=== PATIENT | female | born 1985 | race Two or more races ===

== ENCOUNTER 2017-09-13 09:12 | Emergency (ER) | payer MEDICAID, OTHER ==
[2017-09-13 09:17] VITALS: PULSE 74; RESP 18
[2017-09-13] MEDS ORDERED: Sodium Chloride 0.9% 1,000 ML IV ONE (10:05)
[2017-09-13] MEDS ORDERED: Sodium Chloride 0.9% 1,000 ML ONE (10:48)
[2017-09-13 10:59] LABS: BASO % 0.3 % (0.0-2.0); EOS # 0.1 K/uL (0.0-0.7); EOS % 1.4 % (0.0-4.0); HEMOGLOBIN 12.9 g/dL (11.0-16.0); LYMPH # 2.8 K/uL (1.0-4.3); MEAN CELL VOLUME 77.3 fL (81.0-99.0); MEAN CORPUSCULAR HEMOGLOBIN 26.3 pg (27.0-31.0); MEAN PLATELET VOLUME 8.4 fL (7.2-11.7); MONO # 0.4 K/uL (0.0-0.8); MONO % 5.9 % (0.0-10.0); NEUT # 3.5 K/uL (1.8-7.0); NEUT % 51.4 % (50.0-75.0); RBC 4.92 Mil/uL (3.80-5.20); RED CELL DISTRIBUTION WIDTH 13.4 % (11.5-14.5); WHITE BLOOD COUNT 6.9 K/uL (4.8-10.8)
[2017-09-13 11:32] LABS: INR 1.1; PROTHROMBIN TIME 12.3 SECONDS (9.7-12.2)
--- NOTE | 2017-09-13 12:58 | US ---
Pelvic ultrasound History: Pelvic pain. Comparison: None available. Technique: Real-time sonography was performed through the pelvis utilizing transabdominal and transvaginal techniques. Findings: Uterus: 12.0 x 5.1 x 6.0 centimeters. Heterogeneous echotexture. Anteverted. Low-lying intrauterine device seen at the level of the cervix/proximal endometrial cavity. Clinical correlation. Prominent endometrium measuring up to 1.7 centimeters. No free fluid in the pelvic cul-de-sac. Right ovary: 3.9 x 2.8 x 2.6 centimeters. Normal flow. Small follicles. Left ovary: 4.5 x 4.1 x 4.2 centimeters. Normal flow. Heterogeneous cyst measuring 2.1 x 2.1 x 2.4 centimeters. Impression: 1. Intrauterine device appears somewhat low lying at the cervix/proximal endometrium. Clinical correlation. 2. Prominent endometrium measuring up to 1.7 centimeters. Clinical correlation. 3. 2.4 centimeters left ovarian cyst.
--- NOTE | 2017-09-13 13:06 | C.PDOC ---
History Of Present Illness 32-year-old female, presents to the emergency department with complaints of heavy vaginal bleeding x2 weeks, that is associated intermittent clots. Symptoms have worsened over the past few days, and became associated with lower abdominal cramping, resulting in her coming to the ED for evaluation. Denies nausea/vomiting, fevers, chills,chest pain, shortness of breath, or any other associated symptoms. No other complaints at this time. Time Seen by Provider: 09/13/17 09:53 Chief Complaint (Nursing): Female Genitourinary History Per: Patient History/Exam Limitations: no limitations Onset/Duration Of Symptoms: Days Current Symptoms Are (Timing): Still Present Severity: Moderate Past Medical History Reviewed: Historical Data, Nursing Documentation, Vital Signs Vital Signs: Last Vital Signs Temp 97.8 F 09/13/17 13:48 Pulse 74 09/13/17 13:48 Resp 18 09/13/17 13:48 BP 102/62 09/13/17 13:48 Pulse Ox 100 09/14/17 18:14 Family History: States: No Known Family Hx - Social History Hx Alcohol Use: No Hx Substance Use: No - Immunization History Hx Influenza Vaccination: No Review Of Systems Except As Marked, All Systems Reviewed And Found Negative. Constitutional: Negative for: Fever, Chills Cardiovascular: Negative for: Chest Pain Respiratory: Negative for: Shortness of Breath Gastrointestinal: Positive for: Abdominal Pain. Negative for: Nausea, Vomiting Genitourinary: Positive for: Vaginal Bleeding. Negative for: Dysuria, Frequency , Vaginal Discharge Musculoskeletal: Negative for: Back Pain Physical Exam - Physical Exam Appears: Non-toxic, No Acute Distress Skin: Warm, Dry, No Rash Head: Atraumatic, Normacephalic Eye(s): bilateral: Normal Inspection, PERRL, EOMI Nose: Normal Oral Mucosa: Moist Lips: Normal Appearing Neck: Normal ROM, Supple Chest: Symmetrical, No Tenderness Cardiovascular: Rhythm Regular, No Friction Rub, No Murmur Respiratory: Normal Breath Sounds, No Accessory Muscle Use, No Wheezing Gastrointestinal/Abdominal: Soft, No Tenderness, No Guarding, No Rebound Back: Normal Inspection, No CVA Tenderness Extremity: Normal ROM, No Swelling Neurological/Psych: Oriented x3, Normal Speech, Normal Motor Gait: Steady ED Course And Treatment - Laboratory Results Result Diagrams: 09/13/17 10:53 O2 Sat by Pulse Oximetry: 100 (RA) Pulse Ox Interpretation: Normal - CT Scan/US US Transvaginal Other Rad Studies (CT/US): Read By Radiologist, Radiology Report Reviewed CT/US Interpretation: Accession No. : [id number]. Patient Name / ID : NICOLE ARIAS / [id number]. Exam Date : 09/13/2017 12:10:36 ( Approved ). Study Comment : Sex / Age : F / 32Y. Creator : To Lo MD. Dictator : To Lo MD. Financial Services Professional : Setter Cold Rolling Machine : To Lo MD. Approver2 : Report Date : 09/13/2017 12:57:21. My Comment : . Pelvic ultrasound. History: Pelvic pain. Comparison: None available. Technique: Real-time sonography was performed through the pelvis utilizing transabdominal and transvaginal techniques. Findings: Uterus: 12.0 x 5.1 x 6.0 centimeters. Heterogeneous echotexture. Anteverted. Low-lying intrauterine device seen at the level of the cervix/proximal endometrial cavity. Clinical correlation. Prominent endometrium measuring up to 1.7 centimeters. No free fluid in the pelvic cul-de-sac. Right ovary: 3.9 x 2.8 x 2.6 centimeters. Normal flow. Small follicles. Left ovary: 4.5 x 4.1 x 4.2 centimeters. Normal flow. Heterogeneous cyst measuring 2.1 x 2.1 x 2.4 centimeters. Impression: 1. Intrauterine device appears somewhat low lying at the cervix/proximal endometrium. Clinical correlation. 2. Prominent endometrium measuring up to 1.7 centimeters. Clinical correlation. 3. 2.4 centimeters left ovarian cyst. Medical Decision Making Medical Decision Making: Plan: * CMP, Lipase * CBC, PTT, PT * IVF, Toradol * HCG/UA * US Pel/Transvaginal * Reassess and Disposition On re-exam, the patient reports improvement of symptoms. Lungs are CTA, heart is RRR, abdomen is soft, non-tender and tolerating PO well. Ambulatory in the ED with steady gait. Follow up with the medical doctor within 1-2 days. Return if worsened. Disposition Counseled Patient/Family Regarding: Studies Performed, Diagnosis, Need For Followup, Rx Given - Disposition Referrals: [facility] [Outside] Disposition: HOME/ ROUTINE Disposition Time: 13:49 Condition: GOOD Additional Instructions: Follow up with the medical doctor within 1-2 days without fail. Return if worsened. Prescriptions: Naproxen [Naprosyn] 500 mg PO BID #20 tab Instructions: Menorrhagia (ED) Forms: [employer] (Bangladeshi) - Clinical Impression Clinical Impression: Menorrhagia due to intrauterine device (IUD) - Scribe Statement The provider has reviewed the documentation as recorded by the Scribe (Juan Alberto Monteiro) All medical record entries made by the Scribe were at my direction and personally dictated by me. I have reviewed the chart and agree that the record accurately reflects my personal performance of the history, physical exam, medical decision making, and the department course for this patient. I have also personally directed, reviewed, and agree with the discharge instructions and disposition.
[2017-09-13 13:28] LABS: HCG,QUALITATIVE URINE NEGATIVE (NEGATIVE)
[2017-09-13 13:36] LABS: SQUAMOUS EPITHIAL 1 /hpf (0-5); URINE BILIRUBIN NEGATIVE (NEGATIVE); URINE BLOOD 3+ (NEGATIVE); URINE CLARITY Hazy (Clear); URINE COLOR Yellow (YELLOW); URINE GLUCOSE (UA) NORMAL (Normal); URINE LEUKOCYTE ESTERASE NEG Leu/uL (Negative); URINE NITRATE NEGATIVE (NEGATIVE); URINE PROTEIN 1+ mg/dL (NEGATIVE); URINE UROBILINOGEN NORMAL mg/dL (0.2-1.0)
[2017-09-13 13:49] VITALS: BP 102/62; TEMP 97.8
[2017-09-13 13:51] VITALS: O2SAT 100
== END 2017-09-13 14:05 | disposition home or self-care (01) ==
LOC: C.ER 09:12
DX: T83.83XA Hemorrhage due to genitourinary prosthetic devices, implants and grafts, initial encounter (principal); N92.0 Excessive and frequent menstruation with regular cycle
CPT/HCPCS: 76830; 76856; 81001; 84703; 85025; 85610; 85730; 96360; 99285; J7040

== ENCOUNTER 2017-11-06 10:45 | Emergency (ER) | payer SELFPAY ==
[2017-11-06 11:05] VITALS: RESP 20
[2017-11-06] MEDS ORDERED: Oxycodone/Acetaminophen 5/325 mg Tab PO STA (11:37)
--- NOTE | 2017-11-06 12:02 | C.PDOC ---
History Of Present Illness 32 y/o female presents to the ER complaining of left upper dental pain and gum pain which has been present for the past 1 week. Patient states that she does not have insurance and she did not see a dentist.Patient reports that she is taking over the counter medications. Time Seen by Provider: 11/06/17 11:16 Chief Complaint (Nursing): Dental Pain History Per: Patient History/Exam Limitations: no limitations Onset/Duration Of Symptoms: Days Current Symptoms Are (Timing): Still Present Severity: Moderate Past Medical History Reviewed: Historical Data, Nursing Documentation, Vital Signs Vital Signs: Last Vital Signs Temp 97.8 F 11/06/17 12:44 Pulse 77 11/06/17 12:44 Resp 20 11/06/17 12:44 BP 119/68 11/06/17 12:44 Pulse Ox 99 11/06/17 15:01 - Medical History PMH: No Chronic Diseases Surgical History: Family History: States: No Known Family Hx - Social History Hx Alcohol Use: No Hx Substance Use: No - Immunization History Hx Tetanus Toxoid Vaccination: No Hx Influenza Vaccination: Yes Hx Pneumococcal Vaccination: No Review Of Systems Except As Marked, All Systems Reviewed And Found Negative. Constitutional: Negative for: Fever, Chills ENT: Positive for: Mouth Pain Physical Exam - Physical Exam Appears: Non-toxic, No Acute Distress Skin: Normal Color, Warm, Dry Head: Atraumatic, Normacephalic, No Swelling Eye(s): bilateral: Normal Inspection Nose: Normal Oral Mucosa: Moist Teeth: Caries (multiple caries in left upper lateral teeth) Gingiva: Swelling (mild swelling), Other (no open sores) Neck: Supple Chest: Symmetrical Cardiovascular: Rhythm Regular Respiratory: Normal Breath Sounds, No Rales, No Rhonchi, No Wheezing Extremity: Normal ROM Neurological/Psych: Oriented x3, Normal Speech, Normal Motor, Normal Sensation ED Course And Treatment O2 Sat by Pulse Oximetry: 99 (RA) Pulse Ox Interpretation: Normal Progress Note: Patient given Penicillin VK PO and Percocet PO. Patient has been discharged and given a list of dentists to follow up with in 2 days. Disposition - Dis[facility] Disposition: HOME/ ROUTINE Disposition Time: 11:59 Condition: STABLE Additional Instructions: Follow up with Dentist within 1-2 days. Return to ED if feel worse. Prescriptions: Penicillin VK [Penicillin VK Tab] 500 mg PO Q6H #28 tab oxyCODONE/Acetaminophen [Percocet 5/325 mg Tab] 1 tab PO QID PRN #20 tab PRN Reason: Pain Instructions: Dental Pain (DC) Forms: [employer] (Maldivian) - Clinical Impression Clinical Impression: Pain, dental - PA / DIRECTOR HOME / Resident Statement MD/DO has reviewed & agrees with the documentation as recorded. - Scribe Statement The provider has reviewed the documentation as recorded by the Aleyda Fuentes Provider Attestation All medical record entries made by the Aleyda were at my direction and personally dictated by me. I have reviewed the chart and agree that the record accurately reflects my personal performance of the history, physical exam, medical decision making, and the department course for this patient. I have also personally directed, reviewed, and agree with the discharge instructions and disposition.
[2017-11-06] MEDS ORDERED: Oxycodone/Acetaminophen 5/325 mg Tab ONE (12:05)
[2017-11-06 12:44] VITALS: BP 119/68; PULSE 77; TEMP 97.8
[2017-11-06 14:57] VITALS: O2SAT 99
== END 2017-11-06 12:44 | disposition home or self-care (01) ==
LOC: C.ER 10:45
DX: K08.89 Other specified disorders of teeth and supporting structures (principal)

== ENCOUNTER 2018-04-19 08:42 | Emergency (ER) | payer OTHER ==
--- NOTE | 2018-04-19 11:02 | C.PDOC ---
History Of Present Illness 33 y/o female presents to ED for evaluation of right hand pain since yesterday. Pt states she developed pain after trying to open a tight bottle yesterday. She also complain of chronic bilateral knee pain. Notes she had was evaluated by a physician in [place] who states she would need an Xray of the knees, and is therefore, requesting knee X-rays today. Otherwise, denies weakness, numbness, skin changes, swelling, fever, or any other associated symptoms. Time Seen by Provider: 04/19/18 09:09 Chief Complaint (Nursing): Upper Extremity Problem/Injury History Per: Patient History/Exam Limitations: no limitations Onset/Duration Of Symptoms: Days Current Symptoms Are (Timing): Still Present Quality: "Pain" Exacerbating Factor(s): Movement Recent travel outside of the [place]: No Additional History Per: Patient Past Medical History Reviewed: Historical Data, Nursing Documentation, Vital Signs Vital Signs: Last Vital Signs Temp 98.5 F 04/19/18 11:54 Pulse 63 04/19/18 11:54 Resp 16 04/19/18 11:54 BP 122/80 04/19/18 11:54 Pulse Ox 98 04/19/18 11:54 Surgical History: Family History: States: Unknown Family Hx - Social History Hx Alcohol Use: No Hx Substance Use: No - Immunization History Hx Tetanus Toxoid Vaccination: No Hx Influenza Vaccination: Yes Hx Pneumococcal Vaccination: No Review Of Systems Except As Marked, All Systems Reviewed And Found Negative. Constitutional: Negative for: Fever, Chills Musculoskeletal: Positive for: Hand Pain (right), Leg Pain (knee pain) Neurological: Negative for: Weakness, Numbness Physical Exam - Physical Exam Appears: Non-toxic, No Acute Distress Skin: Normal Color, Warm, Dry Head: Atraumatic, Normacephalic Eye(s): bilateral: Normal Inspection Extremity: No Normal ROM (decreased ROM of right hand secondary to pain. FROM of hand digits.), Tenderness (tenderness to palmar aspect of right hand, no knee tenderness), No Calf Tenderness, Capillary Refill (less than 2 seconds), No Deformity, No Swelling (no erythema or swelling to right hand) Pulses: Left Radial: Normal, Right Radial: Normal Neurological/Psych: Oriented x3, Normal Speech, Normal Sensation ED Course And Treatment O2 Sat by Pulse Oximetry: 100 (RA) Pulse Ox Interpretation: Normal - Other Rad Right hand Xray X-Ray: Interpreted by Me, Viewed By Me Interpretation: No acute fracture or dislocation. Bilateral knee Xray X-Ray: Interpreted by Me, Viewed By Me Interpretation: No acute fracture or dislocation. Medical Decision Making Medical Decision Making: Plan: Right hand Xray Bilateral knee Xray Motrin Short volar splint applied to right hand by neurophysiology tech and checked by me. Pt is being discharged home, with instructions to follow up with PMD in 1-2 days for further evaluation. Disposition - Disposition Referrals: [facility] [Outside] Disposition: HOME/ ROUTINE Disposition Time: 11:42 Condition: STABLE Additional Instructions: Follow up in clinic within 1-2 days. Return to ED if feel worse. 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 - Scribe Statement The provider has reviewed the documentation as recorded by the Scribe KP All medical record entries made by the Scribe were at my direction and personally dictated by me. I have reviewed the chart and agree that the record accurately reflects my personal performance of the history, physical exam, medical decision making, and the department course for this patient. I have also personally directed, reviewed, and agree with the discharge instructions and disposition.
[2018-04-19 11:55] VITALS: BP 122/80; PULSE 63; RESP 16; TEMP 98.5
[2018-04-19 12:47] VITALS: O2SAT 100
--- NOTE | 2018-04-19 13:54 | RAD ---
PROCEDURE: Right Hand Radiographs. HISTORY: pain COMPARISON: None. FINDINGS: BONES: Normal. No fracture. JOINTS: Normal. No osteoarthritic changes. SOFT TISSUES: Normal. OTHER FINDINGS: None. IMPRESSION: Normal right hand radiographs.
--- NOTE | 2018-04-19 13:56 | RAD ---
Date of service: 04/19/2018 PROCEDURE: Bilateral Knee Radiographs. HISTORY: pain COMPARISON: None. FINDINGS: BONES: Right Knee: Normal. No fracture. Left Knee: Normal. No fracture. JOINTS: Right Knee: Normal. No osteoarthritis. Left knee: Normal. No osteoarthritis. SOFT TISSUES: Right Knee: Normal. Left Knee: Normal. JOINT EFFUSION: Right Knee: Questionable trace joint effusion. Left Knee: None. OTHER FINDINGS: None. IMPRESSION: No evidence of acute displaced fracture nor dislocation
== END 2018-04-19 12:02 | disposition home or self-care (01) ==
LOC: C.ER 08:42
DX: M79.641 Pain in right hand (principal)